=== PATIENT | male | born 1970 | race Caucasian/White ===

== ENCOUNTER 2021-03-21 08:36 | Outpatient (REF) | payer OTHER, SELFPAY ==
[2021-03-21 08:49] LABS: MANUAL DIFF FLAG NO
[2021-03-21 09:11] LABS: Basophils Percent Auto 0.6 % (0-2); Eosinophils Absolute Auto 0.2 X10*3/uL (0.0-0.4); Eosinophils Percent Auto 3.2 % (0-4); Hematocrit 47.7 % (42.0-52.0); Hemoglobin 16.2 g/dl (14.0-18.0); Imm Gran Abs Auto 0.02 X10*3/uL (0.00-0.03); Imm Gran Pct Auto 0.3 % (0.0-0.4); Lymphocytes Absolute Auto 2.6 X10*3/uL (1.2-4.9); Lymphocytes Percent Auto 38.4 % (20-40); Mean Corpuscular Hemoglobin 28.8 pg (27.0-33.0); Mean Corpuscular Volume 84.9 fL (80.0-98.0); Mean Platelet Volume 10.9 fL (9.4-12.4); Monocytes Absolute Auto 0.5 X10*3/uL (0.1-1.2); Monocytes Percent Auto 6.9 % (2-11); Neutrophils Absolute Auto 3.4 x10*3/uL (2.0-8.3); Neutrophils Percent Auto 50.6 % (45-73); Platelet Count 222 X10*3/uL (160-400); Red Blood Count 5.62 X10*6/uL (4.60-5.80); White Blood Count 6.8 X10*3/uL (4.8-10.8)
[2021-03-21 09:35] LABS: Alanine Aminotransferase 30 U/L (0-40); Albumin Level 4.5 g/dL (3.5-5.0); Alkaline Phosphatase 49 U/L (39-117); Anion Gap 12 (12-20); Aspartate Amino Transferase 14 U/L (5-37); Bilirubin Total 0.9 mg/dL (0.0-1.0); Blood Urea Nitrogen 12 mg/dL (9-16); Calcium 9.3 mg/dL (8.4-10.2); Carbon Dioxide 27 mmol/L (22-29); Chloride 105 mmol/L (96-108); Cholesterol 191 mg/dL; Estimated Glomerular Filt Rate > 60; Glucose Fasting 96 mg/dL (60-99); HDL Cholesterol 39 mg/dL; LDL Cholesterol Calculated 121 mg/dl; Potassium 3.9 mmol/L (3.3-5.1); Sodium 140 mmol/L (135-145); Triglycerides 156 mg/dL
[2021-03-21 09:56] LABS: Thyroid Stimulating Hormone 0.86 uIU/mL (0.32-4.0)
== END 2021-03-21 08:37 | disposition home or self-care (01) ==
LOC: HO.LAB 08:36
PROVIDERS: Nurse Practitioner Family; PCP Internal Medicine; Visit Provider Nurse Practitioner Family
DX: R03.0 Elevated blood-pressure reading, without diagnosis of hypertension (principal); I10 Essential (primary) hypertension; Z13.220 Encounter for screening for lipoid disorders; Z13.29 Encounter for screening for other suspected endocrine disorder
CPT/HCPCS: 36415; 80053; 80061; 84443; 85025

== ENCOUNTER 2023-11-04 12:37 | Outpatient (AMB) | payer OTHER, SELFPAY ==
[2023-11-04 12:42] VITALS: BP 160/108; PULSE 64; O2SAT 95; BMI 35.1
--- NOTE | 2023-11-04 12:42 | MHC.PC.OV ---
Vital Signs 11/04/23 12:42 Height 5 ft 7 in Weight 224 lb 0.4 oz BMI 35.1 BP 160/108 H Blood Pressure Location Lt brachial Position Sitting Pulse 64 Pulse Source Pulse Oximeter Pulse Oximetry (%) 95 Oxygen Delivery Method Room Air Intake Visit Reasons: Annual Exam Intake Note: Patient is here today for a physical. 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: No Allergies No Known Allergies Allergy (Verified 11/04/23 13:30) Medication List - Last Reconciled 11/04/23 by Denzel Toth MD amlodipine 5 mg PO DAILY 90 days blood pressure monitor As directed Tobacco use date assessed: 11/04/23 Dental Screening Dental Screen Date: 11/04/23 Did you have a dental visit in the last 12 months?: No Did you have a dental problem in the last 6 months where you did not have access to dental care?: No HPI Annual Exam HPI Details Patient comes in today for his annual physical examination He has been here a couple of times over the past year or two but was last seen by me back in 2020 Patient states that he feels okay States that his blood pressure is high today as he forgot to take his Amlodipine yesterday and this morning so he has not taken his BP med in 2 days States that he usually takes his medicine regularly and really just forgot to take it recently He denies any headaches or dizziness Denies any chest pains, no SOB No nausea/vomiting, no abdominal pain No change in bowel habits noted States that he does get up to go to the bathroom to urinate about 2 to 3 times a night for a while now He also has a large area of rash on his abdomen and lower chest area that he states has been there for at least 2 months now He also has a similar but smaller rash on his right arm recently States that he has only been applying some OTC Benadryl cream on it as needed but it is not helping much other than the itching Recalls seeing Dr. Flores in the past for something similar and he was prescribed an unrecalled medication that he took for a month - states that the rahs then did clear up but it recurred after a while He has not had a colonoscopy done yet in the past Will also need his Amlodipine Rx refilled [facility] Medical History Obesity (BMI 30-39.9) Benign essential hypertension Surgical History No pertinent past surgical history Family History Father Medical history unknown Mother Hypertension Cancer Substance use disorder Social History Housing: House Alcohol intake: current Alcohol intake frequency: holidays/special occasions only Patient Tobacco Use Status: Current someday Tobacco user Tobacco use type: Cigar Cigarettes Per Day: 3 e-Cigarette/Vaping Use: Never Used service: No Current occupational status: employed 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 1. Little interest or pleasure in doing things: not at all 2. Feeling down, depressed, or hopeless: not at all 3. Trouble falling or staying asleep, or sleeping too much: not at all 4. Feeling tired or having little energy: not at all 5. Poor appetite or overeating: not at all 6. Feeling bad about yourself - or that you are a failure or have let yourself or your family down: not at all 7. Trouble concentrating on things, such as reading the newspaper or watching television: not at all 8. Moving or speaking so slowly that other people could have noticed. Or the opposite - being so fidgety or restless that you have been moving around a lot more than usual: not at all 9. Thoughts that you would be better off or of hurting yourself in some way: not at all Total score: 0 Depression Screening Interpretation: Negative Depression Screening Done: Yes 70939 - PHQ-9 Billing: Yes Source: Developed by Drs. Arturo Arriaga, Linh Smith, Nikita Cheek and colleagues, with an educational estee from [employer]. Thrive Questionnaire Date Thrive assessed: 11/04/23 I am a: Patient What is your living situation today?: I have a steady place to live Within the past 12 months, did the food you bought not last and you didn't have the money to get more?: Never true Within the past 12 months, did you worry whether your food would run out before you got money to buy more?: Never true Do you have trouble paying for medicines?: No Do you have trouble getting transportation to medical appointments?: No Do you have trouble paying your heating and electricity bill?: No Do you have trouble taking care of your child, family member or friend?: No Do you have trouble with day-to-day activities such as bathing, preparing meals, shopping, managing finances, etc.?: No Are you currently unemployed and looking for a job?: No Are you interested in more education?: No Please select the resources that you would like help with: None Currently or been in a relationship where the following occur: No concerns reported THRIVE Score: 0 AUDIT C Alcohol Use Questionnaire (AUDIT-C) 1. How often do you have a drink containing alcohol?: Monthly or less 2. How many drinks containing alcohol do you have on a typical day when you are drinking?: 1 or 2 Total Score: 1 Score Reviewed/Action Taken: Yes KARMEN-7 AMB Questionnaire KARMEN-7 Date KARMEN - 7 assessed: 11/04/23 Feeling nervous, anxious, or on edge: 0 = Not at all Not being able to stop or control worryin = Not at all Worrying too much about different things: 0 = Not at all Trouble relaxin = Not at all Being so restless that it is hard to sit still: 0 = Not at all Becoming easily annoyed or irritable: 0 = Not at all Feeling afraid as if something awful might happen: 0 = Not at all Total KARMEN-7 score (0-4 normal; 5-9 mild; 10-14 moderate; 15-21 severe): 0 Source: Developed by Drs. Arturo Arriaga, Linh Smith, Nikita Cheek and colleagues, with an educational estee from [employer]. KARMEN-7 Assessment Billing KARMEN-7 Assessment Tool: KARMEN-7 Assessment 62703 Review of Systems Const Denies chills, Denies fatigue, Denies fever(s), Denies headache(s), Denies malaise and Denies weakness Eyes Denies blurry vision, Denies change in vision, Denies irritation and Denies itchy eyes ENT Denies dysphagia, Denies dizziness, Denies otalgia, Denies headache(s), Denies nasal congestion, Denies neck pain, Denies odynophagia and Denies sore throat Card Denies chest pain, Denies rapid heart rate, Denies irregular heart rhythm, Denies palpitations and Denies dyspnea Resp Denies chest congestion, Denies cough, Denies dyspnea and Denies wheezing GI Denies abdominal pain, Denies bloating, Denies constipation, Denies dysphagia, Denies heartburn, Denies diarrhea, Denies nausea, Denies odynophagia and Denies vomiting Denies hematuria, Denies difficulty urinating, Denies dysuria, Reports nocturia, Denies urinary frequency and Denies urinary urgency Musc Denies back pain, Denies arthralgias, Denies joint swelling, Denies muscle weakness and Denies neck pain Skin/Breast Denies change in pigmentation, Denies lesions, Reports rash (large patch of erythematous rash over the abdomen and on the R arm) and Denies unusual bruising Neuro Denies dizziness, Denies headache(s), Denies paresthesias and Denies weakness Endo Denies fatigue and Denies palpitations Aller/Immun Denies itchy eyes and Denies wheezing Physical exam (Primary Care) Vital Signs: Last Vital Signs Pulse 64 11/04/23 12:42 BP 160/108 H 11/04/23 12:42 Pulse Ox 95 11/04/23 12:42 Oxygen Delivery Method Room Air 11/04/23 12:42 BMI result Body Mass Index 35.1 Tobacco/Smoking Status: Tobacco use Status Tobacco use date assessed 11/04/23 11/04/23 12:43 Patient Tobacco Use Status Current someday Tobacco 11/04/23 12:49 Tobacco use type Cigar 11/04/23 12:43 e-Cigarette/Vaping Use Never Used 11/04/23 12:43 PHQ-9: PHQ-9 Score PHQ-9: Total score 0 11/04/23 12:44 Depression Screening Interpretation: Negative Thrive Assessment: Date of Thrive Assessment Date Thrive assessed 11/04/23 11/04/23 12:44 Currently or been in a relationship where the following occur: No concerns reported Const General: no acute distress, alert and awake Orientation/consciousness: patient oriented x3 HENMT Head: Yes normocephalic and Yes atraumatic Ears: external ears normal, TM's normal bilaterally and EAC's normal General nose exam: No nasal discharge present Face and sinus: Yes normal facial exam and Yes sinuses nontender Teeth and gingiva: dentition normal Throat: Yes posterior oropharynx normal and Yes tonsils normal (no TP congestion) Eyes Eyelids: Yes eyelids normal Conjunctivae: conjunctivae normal Pupils: Equal, round and reactive pupils present EOM: EOMs intact bilaterally Neck Neck: Yes no lymphadenopathy and Yes supple Thyroid: Thyroid normal Resp Auscultation: clear to auscultation bilaterally, no rales and no wheezes Cardio Rate: regular rate Rhythm: regular rhythm Heart sounds: no murmurs GI Palpation (GI): Soft to palpation, nontender and No hepatosplenomegaly present Auscultation: normal bowel sounds General: Yes no CVA tenderness Back/Spine/Pelvis Back: no CVA tenderness Thoracic/Lumbar Spine: thoracic and lumbar spine normal to inspection Skin Other: (+) large patch of erythematous rash over the lower chest / anterior abdominal wall area that has a well-delineated border with some central clearing; (+) similar but smaller rash over the right arm Neuro General: patient oriented x3, moves all extremities, no focal motor deficits and CN's II-XI intact bilaterally Cranial nerves: Yes Equal, round and reactive pupils present Cognition (Neuro): normal cognition Gait exam (Neuro): Normal gait present Extrem General: Yes no clubbing, cyanosis or edema Assessment and Plan Assessment & Plan (1) Annual physical exam: Code(s): Z00.00 - Encounter for general adult medical examination without abnormal findings Plan: Check labs (2) Benign essential hypertension: Code(s): I10 - Essential (primary) hypertension Plan: Reinforced low sodium diet - goal is systolic BP of 120 mm or less Continue Amlodipine 5 mg QD for now - Rx refilled Patient is advised that as he has not been taking his BP med consistently lately, we cannot determine if his current dose is adequate or not If his BP is still elevated at his next follow up visit if he is taking his med regularly, then we will need to make some adjustments or changes to his med regimen (3) Tinea corporis: Code(s): B35.4 - Tinea corporis Plan: Will start him on Griseofulvin 500 mg QD x 30 days and Lotrisone cream BID to rash x 4 weeks If rash does not improve with Tx, will need to consider referring back to dermatology (4) Frequent noctunal urination: Code(s): R35.1 - Nocturia Plan: Will check his serum PSA level for further evaluation Discussed that it is likely that he is starting to experience symptoms of BPH (5) Obesity (BMI 30-39.9): Code(s): E66.9 - Obesity, unspecified Plan: Reinforced diet/exercise as tolerated/lose weight (6) Colon cancer screening: Code(s): Z12.11 - Encounter for screening for malignant neoplasm of colon Plan: Will refer him to GI for screening colonoscopy Plan Follow up in 3 months Orders: Orders Prostate Specific Antigen Today N40.0 - Benign prostatic hyperplasia without lower urinary tract symptoms, Z00.00 - Encounter for general adult medical examination without abnormal findings Vitamin D 25-OH Total Today E55.9 - Vitamin D deficiency, unspecified, Z00.00 - Encounter for general adult medical examination without abnormal findings TSH reflex Free T4 Today E78.00 - Pure hypercholesterolemia, unspecified, Z00.00 - Encounter for general adult medical examination without abnormal findings Complete Blood Count Auto Diff Today D64.9 - Anemia, unspecified, Z00.00 - Encounter for general adult medical examination without abnormal findings Comprehensive [place]. Panel Fast Today E78.00 - Pure hypercholesterolemia, unspecified, Z00.00 - Encounter for general adult medical examination without abnormal findings UA CC w/rflx Micro + Cult Today R30.0 - Dysuria, Z00.00 - Encounter for general adult medical examination without abnormal findings Lipid Panel Today E78.00 - Pure hypercholesterolemia, unspecified, Z00.00 - Encounter for general adult medical examination without abnormal findings Referrals Gastroenterology Referral Z12.11 - Encounter for screening for malignant neoplasm of colon Medications: New griseofulvin microsize must administer with high-fat meal or food 500 mg PO DAILY 30 days 30 tabs 0RF clotrimazole-betamethasone 1-0.05 % 1 appl topical BID 4 weeks 45 grams 0RF Refilled amlodipine 5 mg PO DAILY 90 days 90 tabs 1RF I10 - Essential (primary) hypertension Coding Level of Care Code Est Pt Prev Care 40-64y(12822) Diagnoses Annual physical exam Z00.00 Benign essential hypertension I10 Tinea corporis B35.4 Frequent noctunal urination R35.1 Obesity (BMI 30-39.9) E66.9 Colon cancer screening Z12.11 Additional Codes KARMEN-7 Assessment Billing - KARMEN-7 Assessment Tool: KARMEN-7 Assessment 95267 ([id number])
== END 2023-11-04 13:43 | disposition home or self-care (01) ==
PROVIDERS: PCP Internal Medicine; Visit Provider Internal Medicine
DX: Z00.00 Encounter for general adult medical examination without abnormal findings (principal); I10 Essential (primary) hypertension; B35.4 Tinea corporis; R35.1 Nocturia; E66.9 Obesity, unspecified; Z12.11 Encounter for screening for malignant neoplasm of colon
CPT/HCPCS: 99396

== ENCOUNTER 2024-07-05 12:54 | Outpatient (AMB) | payer OTHER, SELFPAY ==
[2024-07-05 13:12] VITALS: BP 146/100; PULSE 95; O2SAT 93; BMI 36.6
--- NOTE | 2024-07-05 13:12 | A.OFFPC_ITS ---
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 Accompanied by: Self / Same As Patient Allergies No Known Allergies Allergy (Verified 07/05/24 13:37) Medication List - Last Reconciled 07/05/24 by Denzel Toth MD amlodipine 5 mg PO DAILY 90 days blood pressure monitor As directed clotrimazole-betamethasone 1-0.05 % 1 appl topical BID 4 weeks griseofulvin microsize 500 mg PO DAILY 30 days Tobacco use date assessed: 07/05/24 Dental Screening Dental Screen Date: 07/05/24 Did you have a dental visit in the last 12 months?: No Did you have a dental problem in the last 6 months where you did not have access to dental care?: No Was dental information given to patient?: No HPI Left eye mole HPI Details Patient comes in today for his follow up visit States that he has a persistent lesion/cyst on his right upper eyelid that has been present for the past 2 to 3 months now States that the lesion does not hurt or itch but it sometimes get bigger than it is right now His states that they would like to see someone about having the cyst removed Patient also needs his Amlodipine Rx refilled States that he has been taking his BP med daily as prescribed although his blood pressure still runs high every now and then His states that patient would complain of some headaches when his BP is up He denies any dizziness Denies any chest pains, no increased SOB No nausea/vomiting, no abdominal pain No change in bowel habits noted He states that he was never contacted for an appointment regarding his colonoscopy after he was referred when he was last here in November 2023 His now states that she just found out that patient has a strong family Hx of colon cancer and wants him to get himself checked out LAUREL Patient also was not yet able to get his previously ordered labs done [facility] Medical History (Updated 07/05/24 @ 13:57 by Denzel Toth MD) Essential hypertension Obesity (BMI 30-39.9) Benign essential hypertension Surgical History No pertinent past surgical history Family History Father Medical history unknown Mother Hypertension Cancer Substance use disorder Social History Housing: House Alcohol intake: current Alcohol intake frequency: holidays/special occasions only Patient Tobacco Use Status: Current someday Tobacco user Tobacco use type: Cigar Cigarettes Per Day: 3 e-Cigarette/Vaping Use: Never Used service: No Current occupational status: employed 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 1. Little interest or pleasure in doing things: not at all 2. Feeling down, depressed, or hopeless: not at all 3. Trouble falling or staying asleep, or sleeping too much: not at all 4. Feeling tired or having little energy: not at all 5. Poor appetite or overeating: not at all 6. Feeling bad about yourself - or that you are a failure or have let yourself or your family down: not at all 7. Trouble concentrating on things, such as reading the newspaper or watching television: not at all 8. Moving or speaking so slowly that other people could have noticed. Or the opposite - being so fidgety or restless that you have been moving around a lot more than usual: not at all 9. Thoughts that you would be better off or of hurting yourself in some way: not at all Total score: 0 Depression Screening Interpretation: Negative Depression Screening Done: Yes 19668 - PHQ-9 Billing: Yes Source: Developed by Drs. Arturo Arriaga, Linh Smith, Nikita Cheek and colleagues, with an educational estee from [employer]. Thrive Questionnaire Date Thrive assessed: 07/05/24 I am a: Patient What is your living situation today?: I have a steady place to live Within the past 12 months, did the food you bought not last and you didn't have the money to get more?: Never true Within the past 12 months, did you worry whether your food would run out before you got money to buy more?: Never true Do you have trouble paying for medicines?: No Do you have trouble getting transportation to medical appointments?: No Do you have trouble paying your heating and electricity bill?: No Do you have trouble taking care of your child, family member or friend?: No Do you have trouble with day-to-day activities such as bathing, preparing meals, shopping, managing finances, etc.?: No Are you currently unemployed and looking for a job?: No Are you interested in more education?: No Please select the resources that you would like help with: None Currently or been in a relationship where the following occur: No concerns reported THRIVE Score: 0 AUDIT C Alcohol Use Questionnaire (AUDIT-C) 1. How often do you have a drink containing alcohol?: Monthly or less 2. How many drinks containing alcohol do you have on a typical day when you are drinking?: 1 or 2 Total Score: 1 Score Reviewed/Action Taken: Yes KARMEN-7 AMB Questionnaire KARMEN-7 Date KARMEN - 7 assessed: 07/05/24 Feeling nervous, anxious, or on edge: 0 = Not at all Not being able to stop or control worryin = Not at all Worrying too much about different things: 0 = Not at all Trouble relaxin = Not at all Being so restless that it is hard to sit still: 0 = Not at all Becoming easily annoyed or irritable: 0 = Not at all Feeling afraid as if something awful might happen: 0 = Not at all Total KARMEN-7 score (0-4 normal; 5-9 mild; 10-14 moderate; 15-21 severe): 0 Source: Developed by Drs. Arturo Arriaga, Linh Smith, Nikita Cheek and colleagues, with an educational estee from [employer]. KARMEN-7 Assessment Billing KARMEN-7 Assessment Tool: KARMEN-7 Assessment 36682 Review of Systems Const Denies chills, Denies fatigue, Denies fever(s) and Reports headache(s) (at times, when blood pressure goes high) Eyes Details: (+) persistent lesion/cyst on the right upper eyelid Denies blurry vision and Denies irritation ENT Denies dysphagia, Denies dizziness, Denies otalgia, Reports headache(s) (at times, when blood pressure goes high), Denies neck pain, Denies odynophagia and Denies sore throat Card Denies chest pain, Denies irregular heart rhythm, Denies palpitations and Denies dyspnea Resp Denies chest congestion, Denies cough and Denies dyspnea GI Denies abdominal pain, Denies constipation, Denies dysphagia, Denies heartburn, Denies diarrhea, Denies nausea, Denies odynophagia and Denies vomiting Denies difficulty urinating, Denies dysuria, Reports nocturia and Denies urinary frequency Musc Denies back pain, Denies arthralgias and Denies neck pain Skin/Breast Denies rash Neuro Denies dizziness, Reports headache(s) (at times, when blood pressure goes high) and Denies paresthesias Endo Denies fatigue and Denies palpitations Physical exam (Primary Care) Vital Signs: Last Vital Signs Pulse 95 07/05/24 13:12 BP 146/100 H 07/05/24 13:12 Pulse Ox 93 07/05/24 13:12 Oxygen Delivery Method Room Air 07/05/24 13:12 BMI result Body Mass Index 36.6 Tobacco/Smoking Status: Tobacco use Status Tobacco use date assessed 07/05/24 07/05/24 13:25 Patient Tobacco Use Status Current someday Tobacco 07/05/24 13:25 Tobacco use type Cigar 07/05/24 13:25 e-Cigarette/Vaping Use Never Used 07/05/24 13:25 PHQ-9: PHQ-9 Score PHQ-9: Total score 0 07/05/24 13:25 Depression Screening Interpretation: Negative Thrive Assessment: Date of Thrive Assessment Date Thrive assessed 07/05/24 07/05/24 13:25 Currently or been in a relationship where the following occur: No concerns reported Const General: no acute distress and alert HENMT Throat: Yes posterior oropharynx normal and Yes tonsils normal (no TP congestion) Eyes Other: (+) non-tender cyst over the lateral side of the right upper eyelid Neck Neck: Yes supple and No lymphadenopathy Thyroid: Thyroid normal Resp Auscultation: clear to auscultation bilaterally, no rales and no wheezes Cardio Rate: regular rate Rhythm: regular rhythm Heart sounds: no murmurs GI Palpation (GI): Soft to palpation and nontender Auscultation: normal bowel sounds General: Yes no CVA tenderness Back/Spine/Pelvis Back: no CVA tenderness Thoracic/Lumbar Spine: No lumbar spinal tenderness Skin Rashes: no rashes Extrem General: Yes no clubbing, cyanosis or edema Coding Level of Care Code Est Pt Level 4 (54761) Diagnoses Essential hypertension I10 Lesion of right upper eyelid H02.9 Colon cancer screening Z12.11 Additional Codes KARMEN-7 Assessment Billing - KARMEN-7 Assessment Tool: KARMEN-7 Assessment 53017 ([id number]) PHQ-9 - 40543 - PHQ-9 Billing: Yes ([id number]) Assessment & Plan Assessment & Plan (1) Essential hypertension: Code(s): I10 - Essential (primary) hypertension Category: Medical Plan: Reinforced low sodium diet - goal is systolic BP of at least 120 to 130 mm or less Continue Amlodipine 5 mg QD - Rx refilled Will start him additionally on Losartan 50 mg QD He is instructed to get his previously ordered labs (updated) done LAUREL (2) Lesion of right upper eyelid: Code(s): H02.9 - Unspecified disorder of eyelid Category: Medical Plan: Will refer him to ophthalmology for further evaluation and consideration for excision of the right upper eyelid lesion, if appropriate (3) Colon cancer screening: Code(s): Z12.11 - Encounter for screening for malignant neoplasm of colon Category: Medical Plan: Patient is advised that he appears to have had an appointment with GI scheduled back on 01/29/2024 but he reportedly was never aware of this appt. They have been instructed to contact GI to schedule a new appointment with them as his previous referral is still active and open in his chart Plan Follow up in 3 months Orders: Referrals Ophthalmology Referral H02.9 - Unspecified disorder of eyelid Medications: New losartan 50 mg PO DAILY 90 days 90 tabs 1RF Refilled amlodipine 5 mg PO DAILY 90 days 90 tabs 1RF I10 - Essential (primary) hypertension
[2024-07-05 13:35] VITALS: BP 140/100
--- OUTSIDE RECORDS SUMMARY | 2024-07-05 15:55 | XMS_ITS | Clinical Summary ---
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 Role Phone Unavailable Primary Care Provider Unavailabl e Social History Tobacco Use Types Packs/Day Years Used Date Smoking Tobacco: Never Assessed Sex and Gender Information Value Date Recorded Sex Assigned at Not on file Legal Sex Male 1:51 PM EST Gender Identity Not on file Sexual Orientation Not on file Plan of Treatment Health Maintenance Due Date Last Done Comments DTaP,Tdap,and Td Vaccines (1 - Tdap) 1988 Hepatitis B Vaccines (1 of 3 - 19+ 3-dose series) 1988 Pneumococcal Vaccine: 50+ Ye ars (1 of 1 - PCV) 10/16/2019 Zoster Vaccines (1 of 2) 10/16/2019 COVID-19 Vaccine ( - 2023-2 5 season) 2024 Influenza Vaccine (#1) 2024 HIB Vaccines Aged Out No longer eligi ble based on patient's age to complete this topic HPV Vaccines Aged Out No longer eligi ble based on patient's age to complete this topic Hepatitis A Vaccines Aged Out No long er eligible based on patient's age to complete this topic IPV Vaccines Aged Out No longer eligi ble based on patient's age to complete this topic MMR Vaccines Aged Out No longer eligi ble based on patient's age to complete this topic Meningococcal ACWY Vaccine Aged Out N o longer eligible based on patient's age to complete this topic Meningococcal B Vacine Aged Out No lo nger eligible based on patient's age to complete this topic Pneumococcal Vaccine: Pediat rics (0 to 5 Years) and At-Risk Patients (6 to 64 Years) Aged Out No longer eligible b ased on patient's age to complete this topic RSV Immunization Patients Un rufino 20 months Aged Out No longer eligible b ased on patient's age to complete this topic Varicella Vaccines Aged Out No longer eligible based on patient's age to complete this topic
== END 2024-07-05 14:02 | disposition home or self-care (01) ==
PROVIDERS: PCP Internal Medicine; Visit Provider Internal Medicine
DX: I10 Essential (primary) hypertension (principal); H02.9 Unspecified disorder of eyelid; Z12.11 Encounter for screening for malignant neoplasm of colon

== ENCOUNTER → 2024-07-05 12:54 | Outpatient (BNVA) | payer OTHER, SELFPAY | PROVIDERS: PCP Internal Medicine; Visit Provider Internal Medicine | DX: I10 Essential (primary) hypertension (principal); H02.9 Unspecified disorder of eyelid; Z79.899 Other long term (current) drug therapy | CPT/HCPCS: 96127 ==

== ENCOUNTER 2024-07-06 06:10 | Outpatient (REF) | payer OTHER, SELFPAY ==
--- OUTSIDE RECORDS SUMMARY | 2024-07-06 06:13 | XMS_ITS | Data Portability ---
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 Plan of Treatment Reminders Order Date Submit Date Provider Last Modified By Organization Details Last Modified Time Details Appointments None recorded. Lab None recorded. Referral None recorded. Procedures None recorded. Surgeries None recorded. Imaging None recorded. Medication Orders albuterol sulfate HFA 90 mcg/actuati on aerosol inhaler 2022 023 [facility]/Pharmacy #[id number], [address] [place], [address], 3 09:12:03 prednisone 20 mg tablet 2022 023 [facility]/Pharmacy #[id number], [address] [place], [address], 3 09:12:04 Allergy Relief (fluticason e) 50 mcg/actuati on nasal spray,suspe nsion 2022 023 [facility]/Pharmacy #[id number], [address] [place], [address], 3 09:12:04 benzonatate 200 mg capsule 2022 023 [facility]/Pharmacy #[id number], [address] [place], [address], 3 09:12:03 Patient TargetsNo targets recorded. Patient Instructions Encounter Date Encounter Id Patient Instructions Last Modified By Organization Details Last Modified Time 05/04/2022 [id number] cough: care instructions Not available 05/04/2022 09:12:00 Acute bronchitis is a condition of the lower airway with self-limited inflammation that will eventually resolve on it's own. It is usually caused by a viral infection in 95% of cases, therefore an antibiotic is not needed. Unfortunately, these symptoms can persist for approximately 3 weeks, with occasional persistence for 4-6 weeks. Treatment for bronchitis is aimed at focusing on helping to relieve your symptoms and you can implement the following remedies below, as long as they do not interfere with your current medications, past medical history, or go against advice you have received from your primary care provider and/or a specialist. If you are concerned you can always ask a pharmacist your primary care provider prior to their use. Not available 05/04/2022 09:11:57 Patient instruct ed on worsening signs and symptoms that would require further evaluation by ED or PCP such as fever of 101.0 or greater, congestion accompanied with coughing, vomiting, diarrhea, abdominal pain, decreased oral intake, lethargy, or other new symptom(s) experienced not discussed during this visit. Use humidifier and ensure good hydration. If you experience new concerning symptoms, shortness of breath, respiratory distress, or chest pain go to the ER. Use the medications prescribed. May use Decongestants if tolerated and no history of elevated blood pressure or Diabetes. Use saline nasal saline and Flonase daily for1 week. You may use tylenol for pain/fever. Do not take prednisone with Ibuprofen. Get some extra rest. When should you call for help? Call anytime you think you may need emergency care. For example, call if: You have severe trouble breathing. Call your doctor now or seek immediate medical care if: You have new or worse trouble breathing. You cough up dark brown or bloody mucus (sputum). You have a new or higher fever. You have a new rash. Watch closely for changes in your health, and be sure to contact your doctor if: You cough more deeply or more often, especially if you notice more mucus or a change in the color of your mucus. You are not getting better as expected. Not available 05/04/2022 09:11:41 Reason for Referral None Reported. Problems Name Problem SNOMED Code Status Onset Date Resolution Date Notes Provider Name and Address Organization Details Recorded Time Hypertensive disorder [id number] Active FLAQUITA García [facility] 3 08:44:09 Problem Notes None recorded. Medical Equipment None Reported. Allergies No known drug allergies Medications Name Sig Start Date Stop Date Status Note LastModified by Organization Details LastModified Time benzonatate 200 mg capsule Take 1 capsule 3 times a day by oral route for 7 days. 2022 active Not Available Not Available Not Avai lable prednisone 20 mg tablet Take 2 tablets every day by oral route in the morning for 5 days. 2022 active Not Available Not Available Not Avai lable amlodipine 5 mg tablet TAKE 1 TABLET BY MOUTH EVERY DAY 2022 active Not Available Not Available Not Avai lable albuterol sulfate HFA 90 mcg/actuatio n aerosol inhaler INHALE 2 PUFFS EVERY 4 HOURS FOR 7 DAYS active Not Available Not Available No t Available fluticasone propionate 50 mcg/actuatio n nasal spray,suspen kash SPRAY 1 SPRAY BY INTRANASAL ROUTE TWICE A DAY FOR 30 DAYS active Not Available Not Available No t Available Vitals Date Recorded Body height Body mass index (BMI) Body weight Pain severity - 0-10 verbal numeric rating [Score] - Reported Oxygen saturation Oxygen saturation in Arterial blood by Pulse oximetry Heart rate Respiratory rate Body temperature Systolic blood pressure Diastolic blood pressure Provider Name and Address Organization Details Last Updated DateTime 3 170.18 cm 35.2 kg/m2 250954. 28 g 0 95 % 95 % 95 /min 19 /min 97.3 [degF] 144 mm[Hg] 99 mm[Hg] KYLE Garcia Seeorandy [facility] 3 08:48:56 Social History Question Answer Notes LastModified by Organizat ion Details LastModified Time Tobacco Smoking Status Current Some Day Smoker [facility] Schaeffer [facility] 05/04/2022 08:46:47 What Is Your Level Of Alcohol Consumption? Occasional Information not available 05/04/2022 Have You Had Direct Contact, Or Contact During Intimacy, With Monkeypox Rash, Scabs, Or Body Fluids From A Person With Monkeypox? No Information not available 05/04/2022 Do You Use Any Illicit Or Recreational Drugs? No Information not available 05/04/2022 Have You Recently Traveled Abroad? No Information not available 05/04/2022 Do You Or Have You Ever Used Any Other Forms Of Tobacco Or Nicotine? No Information not available 05/04/2022 Sex: Unknown Functional Status None recorded. Mental Status None recorded. Family History Relationship Description Onset Age of this Age Resolved Age Notes LastModified by Organization Details LastModified Time Mother Hypertensive disorder Not available 05/2022 08:45:58 Medical History No medical history recorded. Past Encounters Encounter ID Performer Location Encounter Start Date Encounter Closed Date Diagnosis/Indication Diagnosis SNOMED-CT Code Diagnosis ICD10 Code Diagnosis Note [id number] [address] [place] [address] 03/20/2021 08:56:39 03/20/2021 09:56:57 [id number] [address] [place] [address] 06/01/2017 13:57:39 06/01/2017 15:37:23 [id number] [address] [place] [address] 09/17/2016 12:06:46 09/17/2016 12:36:54 [id number] Perfecto Motta, SEPTIC TECHNICIAN [address] [place] [address] 05/04/2022 08:15:58 05/04/2022 09:16:59 Acute bronchitis 46433626 J20.9 Health Concerns Section Related Observation LastModified by Organization Detai ls LastModified Time None Recorded Concern Status LastModified by Organization Details LastModified Time None Recorded Advance Directives Directive None Recorded Payers Encounter Date Sequence Insurance Name Policy Number Policy Arora Covered Member ID Arora Member ID Guarantor Name 03/20/2021 1 [facility] [id number] 1 Kirit C Perez [id number] Kirit C Perez-Lauren era 05/04/[address] [place] [address] [id number] 1 Kirit C Perez [id number] Kirit Martinez Perez-Lauren era Notes Date Note Type Note Provider Name and Address Organization Details Recorded Time 05/04/2022 text/html CoughReported bypatient.Notes:con gested cough and wheezing in the night x 30 days. denies any fever or chills. denies any SOB or respiratory distress. Perfecto Motta NP [address] [place], [address], [place] - [facility] 05/04/2022 09:13:11
[2024-07-06 06:23] LABS: MANUAL DIFF FLAG NO
[2024-07-06 07:04] LABS: Basophils Percent Auto 0.4 % (0-2); Eosinophils Absolute Auto 0.2 X10*3/uL (0.0-0.4); Eosinophils Percent Auto 3.5 % (0-4); Hematocrit 48.3 % (42.0-52.0); Hemoglobin 16.6 g/dl (14.0-18.0); Imm Gran Abs Auto 0.02 X10*3/uL (0.00-0.03); Imm Gran Pct Auto 0.3 % (0.0-0.4); Lymphocytes Absolute Auto 2.6 X10*3/uL (1.2-4.9); Lymphocytes Percent Auto 37.9 % (20-40); Mean Corpuscular HGB Conc 34.4 g/dl (31.0-36.0); Mean Corpuscular Hemoglobin 28.6 pg (27.0-33.0); Mean Corpuscular Volume 83.3 fL (80.0-98.0); Mean Platelet Volume 11.5 fL (9.4-12.4); Monocytes Absolute Auto 0.6 X10*3/uL (0.1-1.2); Monocytes Percent Auto 8.8 % (2-11); Neutrophils Absolute Auto 3.4 x10*3/uL (2.0-8.3); Neutrophils Percent Auto 49.1 % (45-73); Platelet Count 203 X10*3/uL (160-400); White Blood Count 6.9 X10*3/uL (4.8-10.8)
[2024-07-06 07:42] LABS: Alanine Aminotransferase 31 U/L (0-40); Albumin Level 4.4 g/dL (3.5-5.0); Alkaline Phosphatase 58 U/L (39-117); Anion Gap 13 (12-20); Aspartate Amino Transferase 21 U/L (5-37); Bilirubin Total 0.5 mg/dL (0.0-1.0); Blood Urea Nitrogen 17 mg/dL (9-16); Calcium 9.3 mg/dL (8.4-10.2); Carbon Dioxide 26 mmol/L (22-29); Chloride 107 mmol/L (96-108); Cholesterol 192 mg/dL (<200); Estimated Glomerular Filt Rate > 60; Glucose Fasting 96 mg/dL (60-99); HDL Cholesterol 43 mg/dL (>40); LDL Cholesterol Calculated 129 mg/dL (<100); Potassium 3.9 mmol/L (3.3-5.1); Sodium 142 mmol/L (135-145); Total Protein 7.9 g/dL (6.5-8.0); Triglycerides 102 mg/dL (<150)
[2024-07-06 07:50] LABS: TSH reflex Free T4 1.33 uIU/mL (0.32-4.0); Vitamin D 25-OH Total 17.1 ng/mL (>30)
[2024-07-06 07:51] LABS: Prostate Specific Antigen 0.67 ng/mL (<0.05-4.0)
[2024-07-06 08:00] LABS: Appearance Urine Clear; Color Urine Yellow; Glucose Urine UA Negative (Negative); Leukocyte Esterase Urine Negative (Negative); Nitrite Urine Negative (Negative); PH 5.5 (5.0-9.0); UMIC TRIGGER UACC YES; Urine Blood Negative (Negative); Urine Ketones Negative (Negative); Urine Protein 30 (1+) mg/dL (Neg-Trace)
[2024-07-06 08:05] LABS: Bacteria Urine None Seen (None Seen); Hyaline Casts Urine 0-2 /LPF (0-2); RBC Urine 0-2 /HPF (0-2); Squamous Epithelial Cell Urine 0-2 /HPF (0-2); WBC Urine 0-5 /HPF (0-5)
== END 2024-07-06 06:11 | disposition home or self-care (01) ==
LOC: HO.LAB 06:10
PROVIDERS: PCP Internal Medicine; Visit Provider Internal Medicine
DX: Z00.00 Encounter for general adult medical examination without abnormal findings (principal); E55.9 Vitamin D deficiency, unspecified; E78.00 Pure hypercholesterolemia, unspecified; D64.9 Anemia, unspecified; N40.0 Benign prostatic hyperplasia without lower urinary tract symptoms; Z12.5 Encounter for screening for malignant neoplasm of prostate
CPT/HCPCS: 36415; 80053; 80061; 81001; 81003; 82306; 84153; 84443; 85025

== ENCOUNTER → 2024-07-28 13:45 | Outpatient (BNVA) | payer OTHER, SELFPAY | PROVIDERS: PCP Internal Medicine ==

== ENCOUNTER 2024-09-30 12:46 | Outpatient (AMB) | payer OTHER, SELFPAY ==
[2024-09-30 13:02] VITALS: BP 160/100; PULSE 84; O2SAT 95; BMI 36.5
--- NOTE | 2024-09-30 13:02 | MHC.OFFVIS ---
Vital Signs 09/30/24 13:02 Height 5 ft 7 in Weight 233 lb BMI 36.5 BP 160/100 H Blood Pressure Location Lt brachial Position Sitting Pulse 84 Pulse Source Pulse Oximeter Pulse Oximetry (%) 95 Oxygen Delivery Method Room Air Intake Visit Reasons: INP-R/O ESTHER Customer Operations Specialist Required: No Accompanied by: Self / Same As Patient Allergies No Known Allergies Allergy (Verified 09/30/24 13:06) HPI Comments Details: 53 year old male referred to us for evaluation of ESTHER. He has difficulty falling asleep and his c/o loud snoring. He goes to bed at 9pm and wakes up at 5am. 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 He gets up 2-3 times a night for the bathroom. History of hypertension bp is elevated today to 160/100, he is on amlodipine 5mg and losartan 50mg, he forgot to take his meds last night. Denies RLS Denies morning headaches daily, when he manages his blood pressure he does not have headaches any more. Denies grinding his teeth. Denies parasomnias. He smokes 3 cigars per week and drinks one beer at night daily. 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 Cognitive needs: No Hearing needs: No Vision needs: Yes (Reading glasses) Review of Systems Const All systems reviewed & are unremarkable except as noted in HPI and below Physical Exam Vital Signs: Last Vital Signs Pulse 84 09/30/24 13:02 BP 160/100 H 09/30/24 13:02 Pulse Ox 95 09/30/24 13:02 Oxygen Delivery Method Room Air 09/30/24 13:02 BMI result Body Mass Index 36.5 Const General: cooperative, comfortable and no acute distress Nutritional Appearance: average body habitus Orientation/consciousness: patient oriented x3 HEENT Face and sinus: Yes face symmetric Throat: Yes other ([place] score 3) Eyes Pupils: Equal, round and reactive pupils present Neck Neck: Yes full ROM Resp Effort & Inspection: normal respiratory effort and able to speak in complete sentences Neuro General: patient oriented x3 and moves all extremities Cranial nerves: Yes Facial sensation intact/muscles of mastication intact, Yes Equal, round and reactive pupils present, Yes Normal accommodation reflex present, Yes Bilaterally intact EOM present, Yes Normal facial strength present, Yes Midline tongue present, Yes Ability to bilaterally rotate head present and Yes Ability to bilaterally elevate shoulders present Cognition (Neuro): normal cognition Gait exam (Neuro): Normal gait present Motor exam (neuro): 5/5 motor strength present throughout and Normal motor muscle tone present throughout Psych Appearance: grossly normal Thought process: Normal thought process present Thought content: Normal thought content present Results Reviewed Results Reviewed: Reviewed Labs with patient he has low vit d. levels. Assessment & Plan Assessment & Plan (1) ESTHER (obstructive sleep apnea): Code(s): G47.33 - Obstructive sleep apnea (adult) (pediatric) Category: Medical (2) Excessive daytime sleepiness: Code(s): G47.19 - Other hypersomnia Category: Medical (3) Low vitamin D level: Code(s): R79.89 - Other specified abnormal findings of blood chemistry Category: Medical (4) Pinguecula, left eye: Code(s): H11.152 - Pinguecula, left eye Category: Medical Plan ESTHER will evaluate with HST Labs to r/o excessive daytime sleepiness and fatigue Vit D is low start vit d daily. f/u in 3 months Patient Education : Sleep Hygiene and HTN BP management is reviewed, HTN is the number one modifiable risk factor for all cardiovascular co-morbidities. Orders: Orders RT home sleep study Today G47.19 - Other hypersomnia Medications: New cholecalciferol (vitamin D3) 62.5 mcg orally; 3 months 90 caps 0RF low vitamin d MDD 62.5mcg R79.89 - Other specified abnormal findings of blood chemistry Patient Instructions: Sleep Hygiene provided: set a scheduled bedtime and wake time to help regulate the circadian rhythm and balance the release of pituitary hormones. Sleep in a dark room, temperatures below 68 degrees, and no devices n bed. Limit caffeinated products 6 hours prior to bed, and limit fluids 2-4 hours prior to bed. Gentle night yoga, diffusing essential oils, and playing soft music can be relaxing. Coding Level of Care Code New Pt Level 4 (68002) Diagnoses ESTHER (obstructive sleep apnea) G47.33 Excessive daytime sleepiness G47.19 Low vitamin D level R79.89 Pinguecula, left eye H11.152 Time Spent (min) 30 Comment evaluation of sleep apnea Sleep Questionnaire Difficulty falling asleep: Yes Difficulty staying asleep?: No Number of arousals: 3 Snoring: Yes Witnessed apneas: Yes Gasping arousals: Yes Nocturia: Yes GERD: No Vivid dreams: Yes Acting out dreams: Yes Abnormal behavior in sleep: No Abnormal movements in sleep: No Morning headaches: Yes Excessive daytime sleepiness: Yes Daytime naps: Yes Restless legs: No Hallucinations: No Sleep paralysis: No Drop attacks: No Sleep Study: No CPAP: No
--- OUTSIDE RECORDS SUMMARY | 2024-09-30 13:03 | XMS_ITS | Clinical Summary ---
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
== END 2024-09-30 13:38 | disposition home or self-care (01) ==
LOC: HO.HSMS 12:47
PROVIDERS: PCP Internal Medicine; Visit Provider Physician Assistant Medical
DX: G47.33 Obstructive sleep apnea (adult) (pediatric) (principal); G47.19 Other hypersomnia; R79.89 Other specified abnormal findings of blood chemistry; H11.152 Pinguecula, left eye
CPT/HCPCS: 99204

== ENCOUNTER → 2024-09-30 12:46 | Outpatient (BNVA) | payer OTHER, SELFPAY | PROVIDERS: PCP Internal Medicine; Visit Provider Physician Assistant Medical ==

== ENCOUNTER 2024-11-08 14:23 | Outpatient (AMB) | payer OTHER, SELFPAY ==
[2024-11-08 14:31] VITALS: BP 144/92; PULSE 84; O2SAT 91; BMI 36.3
--- NOTE | 2024-11-08 14:32 | A.OFFPC_ITS ---
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 Required: No Accompanied by: Self / Same As Patient Allergies No Known Allergies Allergy (Verified 11/08/24 15:08) Medication List - Last Reconciled 11/08/24 by Denzel Toth MD amlodipine 5 mg PO DAILY 90 days blood pressure monitor As directed cholecalciferol (vitamin D3) 62.5 mcg orally; 3 months MDD 62.5mcg clotrimazole-betamethasone 1-0.05 % 1 appl topical BID 4 weeks griseofulvin microsize 500 mg PO DAILY 30 days losartan 50 mg PO DAILY 90 days Tobacco use date assessed: 11/08/24 Dental Screening Dental Screen Date: 11/08/24 Did you have a dental visit in the last 12 months?: No Did you have a dental problem in the last 6 months where you did not have access to dental care?: No Was dental information given to patient?: No HPI Hypertension HPI Details Patient comes in today for his follow-up visit States that he feels okay He denies any headaches or dizziness Denies any chest pains, no shortness of breath No nausea/vomiting, no abdominal pain No change in bowel habits noted Needs his Amlodipine Rx refilled He has no follow-up labs done recently although he did get his labs done back in July 2024 Adds that he has had some recurrent itchy skin lesions for the past couple of weeks and would like to get a prescription for something to help clear these up [facility] Medical History (Updated 11/14/24 @ 05:35 by Denzel Toth MD) Vitamin D deficiency Essential hypertension Obesity (BMI 30-39.9) Benign essential hypertension Surgical History No pertinent past surgical history Family History Father Medical history unknown Mother Hypertension Cancer Substance use disorder Social History Housing: House Alcohol intake: current Alcohol intake frequency: holidays/special occasions only Patient Tobacco Use Status: Current someday Tobacco user Tobacco use type: Cigar Cigarettes Per Day: 3 e-Cigarette/Vaping Use: Never Used service: No Current occupational status: employed 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 1. Little interest or pleasure in doing things: not at all 2. Feeling down, depressed, or hopeless: not at all 3. Trouble falling or staying asleep, or sleeping too much: not at all 4. Feeling tired or having little energy: not at all 5. Poor appetite or overeating: not at all 6. Feeling bad about yourself - or that you are a failure or have let yourself or your family down: not at all 7. Trouble concentrating on things, such as reading the newspaper or watching television: not at all 8. Moving or speaking so slowly that other people could have noticed. Or the opposite - being so fidgety or restless that you have been moving around a lot more than usual: not at all 9. Thoughts that you would be better off or of hurting yourself in some way: not at all Total score: 0 Depression Screening Interpretation: Negative Depression Screening Done: Yes 28293 - PHQ-9 Billing: Yes Source: Developed by Drs. Arturo Arriaga, Linh Smith, Nikita Cheek and colleagues, with an educational estee from [employer]. Thrive Questionnaire Date Thrive assessed: 11/08/24 I am a: Patient What is your living situation today?: I have a steady place to live Within the past 12 months, did the food you bought not last and you didn't have the money to get more?: Never true Within the past 12 months, did you worry whether your food would run out before you got money to buy more?: Never true Do you have trouble paying for medicines?: No Do you have trouble getting transportation to medical appointments?: No Do you have trouble paying your heating and electricity bill?: No Do you have trouble taking care of your child, family member or friend?: No Do you have trouble with day-to-day activities such as bathing, preparing meals, shopping, managing finances, etc.?: No Are you currently unemployed and looking for a job?: No Are you interested in more education?: No Please select the resources that you would like help with: None Currently or been in a relationship where the following occur: No concerns reported THRIVE Score: 0 AUDIT C Alcohol Use Questionnaire (AUDIT-C) 1. How often do you have a drink containing alcohol?: Monthly or less 2. How many drinks containing alcohol do you have on a typical day when you are drinking?: 1 or 2 3. How often do you have six or more drinks on one occasion?: Never Total Score: 1 Score Reviewed/Action Taken: Yes KARMEN-7 AMB Questionnaire KARMEN-7 Date KARMEN - 7 assessed: 11/08/24 Feeling nervous, anxious, or on edge: 0 = Not at all Not being able to stop or control worryin = Not at all Worrying too much about different things: 0 = Not at all Trouble relaxin = Not at all Being so restless that it is hard to sit still: 0 = Not at all Becoming easily annoyed or irritable: 0 = Not at all Feeling afraid as if something awful might happen: 0 = Not at all Total KARMEN-7 score (0-4 normal; 5-9 mild; 10-14 moderate; 15-21 severe): 0 Source: Developed by Drs. Arturo Arriaga, Linh Smith, Nikita Cheek and colleagues, with an educational estee from [employer]. KARMEN-7 Assessment Billing KARMEN-7 Assessment Tool: KARMEN-7 Assessment 77027 Review of Systems Const Denies chills, Denies fatigue, Denies fever(s) and Reports headache(s) (at times, when blood pressure goes high) ENT Denies dysphagia, Denies dizziness, Denies otalgia, Reports headache(s) (at times, when blood pressure goes high), Denies neck pain, Denies odynophagia and Denies sore throat Card Denies chest pain, Denies irregular heart rhythm, Denies palpitations and Denies dyspnea Resp Denies chest congestion, Denies cough and Denies dyspnea GI Denies abdominal pain, Denies constipation, Denies dysphagia, Denies heartburn, Denies diarrhea, Denies nausea, Denies odynophagia and Denies vomiting Denies difficulty urinating, Denies dysuria, Reports nocturia and Denies urinary frequency Musc Denies back pain, Denies arthralgias and Denies neck pain Skin/Breast Details: (+) few recurrent itchy rash/lesions Neuro Denies dizziness, Reports headache(s) (at times, when blood pressure goes high) and Denies paresthesias Endo Denies fatigue and Denies palpitations Physical exam (Primary Care) Vital Signs: Last Vital Signs Pulse 84 11/08/24 14:31 BP 144/92 H 11/08/24 14:31 Pulse Ox 91 L 11/08/24 14:31 Oxygen Delivery Method Room Air 11/08/24 14:31 BMI result Body Mass Index 36.3 Tobacco/Smoking Status: Tobacco use Status Tobacco use date assessed 11/08/24 11/08/24 14:34 Patient Tobacco Use Status Current someday Tobacco 11/08/24 14:34 Tobacco use type Cigar 11/08/24 14:34 e-Cigarette/Vaping Use Never Used 11/08/24 14:34 PHQ-9: PHQ-9 Score PHQ-9: Total score 0 11/08/24 15:12 Depression Screening Interpretation: Negative Thrive Assessment: Date of Thrive Assessment Date Thrive assessed 11/08/24 11/08/24 14:34 Currently or been in a relationship where the following occur: No concerns reported Const General: no acute distress and alert HENMT Throat: Yes posterior oropharynx normal and Yes tonsils normal (no TP congestion) Neck Neck: Yes supple and No lymphadenopathy Thyroid: Thyroid normal Resp Auscultation: clear to auscultation bilaterally, no rales and no wheezes Cardio Rate: regular rate Rhythm: regular rhythm Heart sounds: no murmurs GI Palpation (GI): Soft to palpation and nontender Auscultation: normal bowel sounds General: Yes no CVA tenderness Back/Spine/Pelvis Back: no CVA tenderness Thoracic/Lumbar Spine: No lumbar spinal tenderness Skin Other: (+) few scattered pruritic papular rash/lesions Extrem General: Yes no clubbing, cyanosis or edema Results Reviewed Results Reviewed: Laboratory Tests 07/06/24 07/06/24 06:19 06:21 WBC 6.9 Hgb 16.6 Hct 48.3 Plt Count 203 Sodium 142 Potassium 3.9 Creatinine 0.82 Estimated GFR > 60 Fasting Glucose 96 Calcium 9.3 AST 21 ALT 31 Triglycerides 102 Cholesterol 192 LDL Cholesterol, Calc 129 H HDL Cholesterol 43 Prostate Specific Ag 0.67 25-OH Vitamin D Total 17.1 L TSH 1.33 Ur Specific [place] 1.020 Urine Protein 30 (1+) H Urine Glucose (UA) Negative Urine Blood Negative Urine Nitrite Negative Ur Leukocyte Esterase Negative Coding Level of Care Code Est Pt Level 4 (10206) Diagnoses Essential hypertension I10 Vitamin D deficiency E55.9 Dermatitis L30.9 Obesity (BMI 30-39.9) E66.9 Additional Codes KARMEN-7 Assessment Billing - KARMEN-7 Assessment Tool: KARMEN-7 Assessment 34967 ([id number]) PHQ-9 - 67460 - PHQ-9 Billing: Yes ([id number]) Assessment & Plan Assessment & Plan (1) Essential hypertension: Code(s): I10 - Essential (primary) hypertension Category: Medical Plan: Reinforced low sodium diet - goal is systolic BP of at least 120 to 130 mm or less Continue Amlodipine 5 mg QD; will increase his Losartan from 50 mg to 100 mg QD He is advised to continue monitoring his blood pressure regularly (2) Vitamin D deficiency: Code(s): E55.9 - Vitamin D deficiency, unspecified Category: Medical Plan: Results of his labs done back in July 2024 reviewed and discussed with patient - she is advised that his vitamin-D level is low Will start him on vitamin D3 2000 units QD (3) Dermatitis: Code(s): L30.9 - Dermatitis, unspecified Category: Medical Plan: Will start him on topical Mometasone 0.1% QD PRN (4) Obesity (BMI 30-39.9): Code(s): E66.9 - Obesity, unspecified Category: Medical Plan: Reinforced diet/exercise as tolerated/lose weight Plan Follow up in 4 months Medications: New mometasone 0.1% 1 appl topical DAILY PRN 45 grams 1RF rash/itching Changed From cholecalciferol (vitamin D3) 62.5 mcg orally; 3 months 90 caps 0RF low vitamin d MDD 62.5mcg R79.89 - Other specified abnormal findings of blood chemistry To cholecalciferol (vitamin D3) 2,000 units orally ; 90 caps 3RF 90 days R79.89 - Other specified abnormal findings of blood chemistry From losartan 50 mg PO DAILY 90 days 90 tabs 1RF To losartan 100 mg PO DAILY 90 tabs 1RF 90 days Refilled amlodipine 5 mg PO DAILY 90 tabs 1RF 90 days I10 - Essential (primary) hypertension
--- OUTSIDE RECORDS SUMMARY | 2024-11-08 15:16 | XMS_ITS | Clinical Summary ---
Author Organization [facility] ity Address [address] [place] [address] Care Team Providers Care Radiology Rn Name Role Phone Unavailable Primary Care Provider [...] Vaccines (1 of 2) 10/16/2019 COVID-19 Vaccine (1 - 2023-2 5 season) 2024 Influenza Vaccine (#1) 2025 HIB Vaccines Aged Out No longer [...] 5 Years) and At-Risk Patients (6 to 49 Years) Aged Out No longer eligible b ased on patient's age to complete this topic RSV Immunization Patients Un rufino 20 months Aged Out No longer eligible b ased on patient's age to complete this topic Varicella Vaccines Aged Out No longer eligible based on patient's age to complete this topic
--- OUTSIDE RECORDS SUMMARY | 2024-11-08 15:16 | XMS_ITS | Data Portability ---
Author Organization [facility]LAQUITA [facility] [employer], [address] Address [address] [place] [address] Care Team Providers Care Supervisor Film Processing Name Role Phone MACY FUCHS Primary Care Provider [phone] Assessment No assessment recorded. Plan of Treatment Reminders Order Date Submit Date Provider Last Modified By Organization Details Last Modified Time Details Appointments None recorded. Lab None recorded. Referral None recorded. Procedures None recorded. Surgeries None recorded. Imaging None recorded. Medication Orders albuterol sulfate HFA 90 mcg/actuati on aerosol inhaler 2022 023 [facility] #[id number], [address] [place], [address], 3 09:12:03 prednisone 20 mg tablet 2022 023 [id number], [address] [place], [address], 3 09:12:04 Allergy Relief (fluticason e) 50 mcg/actuati on nasal spray,suspe nsion 2022 023 [id number], [address] [place], [address], 3 09:12:04 benzonatate 200 mg capsule 2022 023 [id number], [address] [place], [address], 3 09:12:03 Patient TargetsNo targets recorded. Patient Instructions Encounter Date Encounter Id Patient Instructions Last Modified By Organization Details Last Modified Time 05/04/2022 [id number] cough: care instructions Not available 05/04/2022 09:12:00 [...] Address Organization Details Recorded Time Hypertensive disorder [id number] Active FLAQUITA García [facility] 3 08:44:09 [...] height Body mass index (BMI) Body weight Oxygen saturation Oxygen saturation in Arterial blood by Pulse oximetry Heart rate Respiratory rate Body temperature Systolic And Diastolic Provider Name and Address Organization Details Last Updated DateTime 3 170.18 cm 35.2 kg/m2 477551. 28 g 95 % 95 % 95 /min 19 /min 97.3 [degF] 144/99 mm[Hg] KYLE Santiago [facility] 3 08:48:56 Social History Question Answer Notes LastModified by Organizat ion Details LastModified Time Tobacco Smoking Status Current Some Day Smoker [facility]LAQUITA Schaeffer [facility] 05/04/2022 08:46:47 Have You Had Direct Contact, Or Contact During Intimacy, With Monkeypox Rash, Scabs, Or Body Fluids From A Person With Monkeypox? No Information not available 05/04/2022 Have You Recently Traveled Abroad? No Information not available 05/04/2022 Sex: Unknown Functional Status Question Answer Note LastModified by Organizat ion Details LastModified Time Do you use any illicit or recreational drugs? No Information not available 05/04/2022 Do you or have you ever used any other forms of tobacco or nicotine? No Information not available 05/04/2022 What is your level of alcohol consumption? Occasional Information not available 05/04/2022 Mental Status None recorded. Family History Relationship Description Onset Age of this Age Resolved Age Notes LastModified by Organization Details LastModified Time Mother Hypertensive disorder Not available 05/2022 08:45:58 Medical History No medical history recorded. Past Encounters Encounter ID Performer Location Encounter Start Date Encounter Closed Date Diagnosis/Indication Diagnosis SNOMED-CT Code Diagnosis ICD10 Code Diagnosis Note [id number] [address] [facility] [place] [address] 03/20/2021 08:56:39 03/20/2021 09:56:57 [id number] [address] [place] [address] 06/01/2017 13:57:39 06/01/2017 15:37:23 [id number] [address] [place] [address] 09/17/2016 12:06:46 09/17/2016 12:36:54 [id number] Perfecto Motta, [facility] [address] [place] [address] 05/04/2022 08:15:58 05/04/2022 09:16:59 Acute bronchitis 51256609 J20.9 Health Concerns Section Related Observation LastModified by Organization Detai ls LastModified Time None Recorded Concern Status LastModified by Organization Details LastModified Time None Recorded Advance Directives Directive None Recorded Payers Insurance Date Sequence Insurance Name Policy Number Policy Arora Covered Member ID Arora Member ID Guarantor Name 06/18/[address] [place] [address] [id number] Kirit C Perez [id number] Kirit C Perez-Lauren era Notes Date Note Type Note Provider Name and Address Organization Details Recorded Time 05/04/2022 text/html CoughReported bypatient.Notes:con gested cough and wheezing in the night x 30 days. denies any fever or chills. denies any SOB or respiratory distress. Perfecto Motta NP [address] [place], [address], [place] - [facility] 05/04/2022 09:13:11
== END 2024-11-08 15:18 | disposition home or self-care (01) ==
LOC: HO.HMCH 14:23
PROVIDERS: PCP Internal Medicine; Visit Provider Internal Medicine
DX: I10 Essential (primary) hypertension (principal); E55.9 Vitamin D deficiency, unspecified; E66.9 Obesity, unspecified; Z68.36 Body mass index [BMI] 36.0-36.9, adult; L30.9 Dermatitis, unspecified

== ENCOUNTER → 2024-11-08 14:23 | Outpatient (BNVA) | payer OTHER, SELFPAY | PROVIDERS: PCP Internal Medicine; Visit Provider Internal Medicine | DX: I10 Essential (primary) hypertension (principal); E55.9 Vitamin D deficiency, unspecified; L30.9 Dermatitis, unspecified; E66.9 Obesity, unspecified; Z68.36 Body mass index [BMI] 36.0-36.9, adult | CPT/HCPCS: 96127 ==

== ENCOUNTER 2024-11-16 10:04 | Outpatient (AMB) | payer OTHER, SELFPAY ==
--- NOTE | 2024-11-16 10:05 | A.OFFVIS_ITS ---
Vital Signs 11/16/24 10:08 Height 5 ft 7 in Weight 229 lb 4.492 oz BMI 35.9 BP 157/97 H Blood Pressure Location Lt brachial Position Sitting Pulse 75 Intake Visit Reasons: [place] screening Intake Note: Kirit presents in the office as a colonoscopy screening. CC: Just due for a colonoscopy - no GI concerns. Family Hx of colon cancer. 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 He is referred by Denzel Toth Obesity Hypertension High cholesterol Headache syndrome * SURGICAL HISTORY None * ALLERGIES: NKDA * [facility] LABS: Laboratory Tests 07/06/24 06:21 WBC 6.9 Hgb 16.6 Hct 48.3 Plt Count 203 Estimated GFR > 60 Total Bilirubin 0.5 AST 21 ALT 31 Alkaline Phosphatase 58 TSH 1.33 TODAY'S VISIT This is his first colonoscopy. No bowel or upper GI problems. He denies any cardiac or respiratory problems. He is naive to anesthesia and sedation. No ID problems. His father of CRC age 75. [facility] Medical History (Updated 11/16/24 @ 10:35 by VIDA Carty) Blood pressure elevated without history of HTN Excessive daytime sleepiness Annual physical exam Colon cancer screening Lesion of right upper eyelid Low vitamin D level Screening for hypothyroidism Benign essential hypertension Screening for hyperlipidemia Vitamin D deficiency Essential hypertension Obesity (BMI 30-39.9) Surgical History No pertinent past surgical history Family History (Updated 11/16/24 @ 10:09 by LOLY Garcia) Father Medical history unknown Colon cancer Mother Hypertension Cancer Substance use disorder Colon cancer Social History Housing: House Alcohol intake: current Alcohol intake frequency: holidays/special occasions only Patient Tobacco Use Status: Current someday Tobacco user Tobacco use type: Cigar Cigarettes Per Day: 3 e-Cigarette/Vaping Use: Never Used service: No Current occupational status: employed 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 Cognitive needs: No Hearing needs: No Vision needs: Yes (Reading glasses) Review of Systems Const Denies fatigue, Denies fever(s), Denies night sweats, Denies poor appetite and Denies weight loss ENT Reports Normal hearing present, Denies dental pain, Denies dysphagia, Denies hearing loss, Denies mouth pain, Denies odynophagia, Denies throat swelling, Denies tongue swelling and Reports other (Dentition adequate) Card Reports no additional complaints Resp Reports no additional complaints GI Details: Denies abdominal pain, Denies melena, Denies bloating, Denies hematochezia, Denies constipation, Denies GI cramping, Denies dysphagia, Denies excessive flatus, Denies early satiety, Denies heartburn, Denies diarrhea, Denies nausea, Denies odynophagia, Denies vomiting and Denies hematemesis Skin/Breast Denies pruritus, Denies lesions, Denies rash and Denies jaundice Neuro Reports Normal hearing present and Denies Abnormal speech present Endo Denies fatigue Aller/Immun Denies throat swelling and Denies tongue swelling Physical Exam Vital Signs: BMI result Body Mass Index 35.9 Const General: cooperative, no acute distress, well developed and well groomed Nutritional Appearance: well nourished and obese Orientation/consciousness: oriented to person, oriented to place and oriented to time Limitations: No language barrier HEENT Head: Yes normocephalic and Yes atraumatic Eyes General: appearance normal, both eyes and all related structures Pupils: Equal, round and reactive pupils present Neck Neck: Yes normal visual inspection and Yes no lymphadenopathy Thyroid: Thyroid normal Resp Effort & Inspection: normal respiratory effort and able to speak in complete sentences Auscultation: clear to auscultation bilaterally Cardio Rate: regular rate Rhythm: regular rhythm Heart sounds: Normal, physiologic split S2 sound present Peripheral pulses: radial pulses present and posterior tibial pulses present GI Inspection: No distended, No Abdominal panniculus present, Yes obesity and Yes visible pulsation (mild umbilical hernia) Palpation (GI): Soft to palpation, nontender, no guarding, not rigid and No hepatosplenomegaly present Percussion: Yes normal to percussion Auscultation: normal bowel sounds Rectal Exam - Male: Yes deferred Skin General skin exam: no rashes or lesions noted, turgor normal, skin not dry, no jaundice, No spider nevi and no striae Rashes: no rashes Nails: normal Neuro General: oriented to person, oriented to place and oriented to time Cranial nerves: Yes Equal, round and reactive pupils present and Yes Normal hearing present Speech: No Abnormal speech present Extrem General: Yes normal to inspection, No clubbing, No cyanosis and No edema Psych Appearance: grossly normal and well kempt Mental Status: mental status grossly normal Speech and movement: Normal speech and movement present Affect: normal affect Attitude: cooperative Thought process: Normal thought process present and not confabulating Thought content: Normal thought content present Insight: Good insight present (Psych) Judgement: Good judgement present (Psych) Assessment & Plan Assessment & Plan (1) Pre-op examination: Code(s): Z01.818 - Encounter for other preprocedural examination Category: Medical (2) ESTHER (obstructive sleep apnea): Code(s): G47.33 - Obstructive sleep apnea (adult) (pediatric) Category: Medical (3) Obesity (BMI 30-39.9): Code(s): E66.9 - Obesity, unspecified Category: Medical (4) Family history of colon cancer in father: Comment: CRC age 75 Code(s): Z80.0 - Family history of malignant neoplasm of digestive organs Category: Medical Plan This is his first colonoscopy. No bowel or upper GI problems. He denies any cardiac or respiratory problems. He is naive to anesthesia and sedation. No ID problems. His father of CRC age 75. Orders: Orders Colonoscopy - GI Use Only Today Z01.818 - Encounter for other preprocedural examination Medications: New sodium,potassium,mag sulfates 17.5-3.13-1.6 gram (Suprep Bowel Prep Kit) 480 mL orally; FOR COLONOSCOPY PREP 354 mL 0RF Coding Level of Care Code New Pt Level 3 (98453) Diagnoses Pre-op examination Z01.818 ESTHER (obstructive sleep apnea) G47.33 Obesity (BMI 30-39.9) E66.9 Family history of colon cancer in father Z80.0
[2024-11-16 10:08] VITALS: BP 157/97; PULSE 75; BMI 35.9
--- OUTSIDE RECORDS SUMMARY | 2024-11-16 10:37 | XMS_ITS | Clinical Summary ---
Author Organization [facility] ity Address [address] [place] [address] Care Team Providers Care Silver Holloware Assembler Name Role Phone Unavailable Primary Care Provider [...]
--- OUTSIDE RECORDS SUMMARY | 2024-11-16 10:38 | XMS_ITS | Data Portability ---
Author Organization FLAQUITA Santiago [facility], [address] Address [address] [place] [address] Care Team Providers Care Manufacturing Plant Controller Name Role Phone MACY FUCHS Primary Care Provider Assessment No assessment recorded. Plan of Treatment Reminders Order Date Submit Date Provider Last Modified By Organization Details Last Modified Time Details Appointments None recorded. Lab None recorded. Referral None recorded. Procedures None recorded. Surgeries None recorded. Imaging None recorded. Medication Orders albuterol sulfate HFA 90 mcg/actuati on aerosol inhaler 2022 023 [facility] #[id number], [address] [place], [address], 3 09:12:03 prednisone 20 mg tablet 2022 023 [facility], [address] [place], [address], 3 09:12:04 Allergy Relief (fluticason e) 50 mcg/actuati on nasal spray,suspe nsion 2022 023 [facility]12[facility], [address] [place], [address], 3 09:12:04 benzonatate 200 mg capsule 2022 023 [facility] #12[facility], [address] [place], [address], 3 09:12:03 Patient TargetsNo targets recorded. Patient Instructions Encounter Date Encounter Id Patient Instructions Last Modified By Organization Details Last Modified Time 05/04/2022 [id number] cough: care instructions Not available 05/04/2022 09:12:00 [...] Address Organization Details Recorded Time Hypertensive disorder [id number] Active FLAQUITA García RA [facility] 3 08:44:09 [...] Updated DateTime 3 170.18 cm 35.2 kg/m2 105457. 28 g 95 % 95 % 95 [...] SNOMED-CT Code Diagnosis ICD10 Code Diagnosis Note [id number] [address] [place] [address] 03/20/2021 08:56:39 03/20/2021 09:56:57 [id number] [address] [place] [address] 06/01/2017 13:57:39 06/01/2017 15:37:23 [id number] [address] [place] [address] 09/17/2016 12:06:46 09/17/2016 12:36:54 [id number] Perfecto Motta, TRANSLATOR INTERPRETER [address] [place] [address] 05/04/2022 08:15:58 05/04/2022 09:16:59 Acute bronchitis 22385221 J20.9 Health Concerns Section Related Observation LastModified by Organization Detai ls LastModified Time None Recorded Concern Status LastModified by Organization Details LastModified Time None Recorded Advance Directives Directive None Recorded Payers Insurance Date Sequence Insurance Name Policy Number Policy Arora Covered Member ID Arora Member ID Guarantor Name 06/18/[address] [place] [address] [id number] 1 Kirit C Perez [id number] Kirit C Perez-Lauren era Notes Date Note Type Note Provider Name and Address Organization Details Recorded Time 05/04/2022 text/html CoughReported bypatient.Notes:con gested cough and wheezing in the night x 30 days. denies any fever or chills. denies any SOB or respiratory distress. Perfecto Motta NP [address] [place], [address], [place] - [facility] 05/04/2022 09:13:11
== END 2024-11-16 10:33 | disposition home or self-care (01) ==
LOC: HO.HGI 10:04
PROVIDERS: PCP Internal Medicine; Visit Provider Nurse Practitioner
DX: Z01.818 Encounter for other preprocedural examination (principal); Z12.11 Encounter for screening for malignant neoplasm of colon; Z80.0 Family history of malignant neoplasm of digestive organs; G47.33 Obstructive sleep apnea (adult) (pediatric); E66.9 Obesity, unspecified
CPT/HCPCS: 99203

== ENCOUNTER 2024-12-26 13:54 | Outpatient (AMB) | payer OTHER, SELFPAY ==
[2024-12-26 14:12] VITALS: BP 140/90; PULSE 94; O2SAT 94; BMI 37.4
--- NOTE | 2024-12-26 14:12 | A.OFFVIS_ITS ---
Vital Signs 12/26/24 14:12 Height 5 ft 7 in Weight 239 lb BMI 37.4 BP 140/90 H Blood Pressure Location Rt brachial Position Sitting Pulse 94 Pulse Source Pulse Oximeter Pulse Oximetry (%) 94 Oxygen Delivery Method Room Air Intake Visit Reasons: 3 mo followo up Intake Note: Patient presents follow up ESTHER. No-showed HST 12/14. Looking to r/s test Allergies No Known Allergies Allergy (Verified 12/26/24 14:17) HPI Comments Details: 54 year old male referred to us for an evaluation of sleep apnea. Pending HST to determine ESTHER- We discussed labs today. He has difficulty falling asleep and his c/o loud snoring. He goes to bed at 9pm and wakes up at 5am. 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 He gets up 2-3 times a night for the bathroom. History of hypertension bp is elevated today his bp is 140/90, he forgot to take his meds last night. Denies RLS. Denies morning headaches daily, when he manages his blood pressure he does not have headaches any more. Denies grinding his teeth. Denies parasomnias, denies hallucination. He smokes 2-3 cigars per month, drinks socially. 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 [facility] Medical History Blood pressure elevated without history of HTN Excessive daytime sleepiness Annual physical exam Colon cancer screening Lesion of right upper eyelid Low vitamin D level Screening for hypothyroidism Benign essential hypertension Screening for hyperlipidemia Vitamin D deficiency Essential hypertension Obesity (BMI 30-39.9) Surgical History No pertinent past surgical history Family History Father Medical history unknown Colon cancer Mother Hypertension Cancer Substance use disorder Colon cancer Social History Housing: House Alcohol intake: current Alcohol intake frequency: holidays/special occasions only Patient Tobacco Use Status: Current someday Tobacco user Tobacco use type: Cigar Cigarettes Per Day: 3 e-Cigarette/Vaping Use: Never Used service: No Current occupational status: employed 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 Cognitive needs: No Hearing needs: No Vision needs: Yes (Reading glasses) Physical Exam Vital Signs: Last Vital Signs Pulse 94 12/26/24 14:12 BP 140/90 H 12/26/24 14:12 Pulse Ox 94 12/26/24 14:12 Oxygen Delivery Method Room Air 12/26/24 14:12 BMI result Body Mass Index 37.4 Const General: cooperative, comfortable and no acute distress Nutritional Appearance: average body habitus Orientation/consciousness: patient oriented x3 HEENT Face and sinus: Yes face symmetric Throat: Yes other ([place] score 3) Eyes Pupils: Equal, round and reactive pupils present Neck Neck: Yes full ROM Resp Effort & Inspection: normal respiratory effort and able to speak in complete sentences Neuro General: patient oriented x3 and moves all extremities Cranial nerves: Yes Facial sensation intact/muscles of mastication intact, Yes Equal, round and reactive pupils present, Yes Normal accommodation reflex present, Yes Bilaterally intact EOM present, Yes Normal facial strength present, Yes Midline tongue present, Yes Ability to bilaterally rotate head present and Yes Ability to bilaterally elevate shoulders present Cognition (Neuro): normal cognition Gait exam (Neuro): Normal gait present Motor exam (neuro): 5/5 motor strength present throughout and Normal motor muscle tone present throughout Psych Appearance: grossly normal Thought process: Normal thought process present Thought content: Normal thought content present Assessment & Plan Assessment & Plan (1) Excessive daytime sleepiness: Code(s): G47.19 - Other hypersomnia Category: Medical (2) Vitamin D deficiency: Code(s): E55.9 - Vitamin D deficiency, unspecified Category: Medical (3) Obesity (BMI 30-39.9): Code(s): E66.9 - Obesity, unspecified Category: Medical Plan HST r/o esther labs reveiwed with patient today. Weight management referral if amenable in the future. f/u in 3 months Orders: Orders RT home sleep study 12/26/24 G47.19 - Other hypersomnia Patient Instructions: Sleep Hygiene provided: set a scheduled bedtime and wake time to help regulate the circadian rhythm and balance the release of pituitary hormones. Sleep in a dark room, temperatures below 68 degrees, and no devices n bed. Limit caffeinated products 6 hours prior to bed, and limit fluids 2-4 hours prior to bed. Gentle night yoga, diffusing essential oils, and playing soft music can be relaxing. Coding Level of Care Code Est Pt Level 4 (71108) Diagnoses Excessive daytime sleepiness G47.19 Vitamin D deficiency E55.9 Obesity (BMI 30-39.9) E66.9
--- OUTSIDE RECORDS SUMMARY | 2024-12-26 15:15 | XMS_ITS | Clinical Summary ---
Author Organization [facility] ity Address [address] [place] [address] Care Team Providers Care Short Filler Bunch Machine Operator Name Role Phone Unavailable Primary [...] Vaccine (1 - 2023-2 5 season) 2024 Depression Screening 05/04/2024 Influenza Vaccine (#1) 2025 HIB Vaccines Aged [...]
== END 2024-12-26 14:54 | disposition home or self-care (01) ==
LOC: HO.HSMS 13:54
PROVIDERS: PCP Internal Medicine; Visit Provider Physician Assistant Medical
DX: G47.19 Other hypersomnia (principal); E55.9 Vitamin D deficiency, unspecified; E66.9 Obesity, unspecified
CPT/HCPCS: 99214

== ENCOUNTER → 2025-03-06 09:48 | Outpatient (REF) | payer OTHER, SELFPAY ==
--- OUTSIDE RECORDS SUMMARY | 2025-03-06 11:22 | XMS_ITS | Clinical Summary ---
Author Organization [facility] ity Address [address] [place] [address] Care Team Providers Care Towel Hemmer Name Role Phone Unavailable Primary Care Provider [...] 10/16/2019 Zoster Vaccines (1 of 2) 10/16/2019 Depression Screening 05/04/2024 COVID-19 Vaccine (1 - 2023-2 5 season) 2025 Influenza Vaccine (#1) 2025 RSV Immunization Adult Patie nts (1 - 1-dose 75+ series) 2044 HIB Vaccines Aged Out No longer eligi [...]
--- OUTSIDE RECORDS SUMMARY | 2025-03-06 11:22 | XMS_ITS | Data Portability ---
Author Organization FLAQUITA Santiago [employer], [address] Address [address] [place] [address] Care Team Providers Care Student Finance Advisor Name Role Phone MACY FUCHS Primary Care Provider [phone] Assessment No assessment recorded. Plan of Treatment Reminders Order Date Submit Date Provider Last Modified By Organization Details Last Modified Time Details Appointments None recorded. Lab None recorded. Referral None recorded. Procedures None recorded. Surgeries None recorded. Imaging None recorded. Medication Orders albuterol sulfate HFA 90 mcg/actuati on aerosol inhaler [address] [facility] #1291, [address] [place], [address], 3 09:12:03 prednisone [address] tablet [address] [facility]1291, [address] [place], [address], 3 09:12:04 Allergy Relief (fluticason e) 50 mcg/actuati on nasal spray,suspe nsion [address] [facility] #1291, [address] [place], [address], 3 09:12:04 benzonatate 200 mg capsule [address] [facility]1291, [address] [place], [address], 3 09:12:03 Patient TargetsNo targets recorded. Patient Instructions Encounter Date Encounter Id Patient Instructions Last Modified By Organization Details Last Modified Time 05/04/2022 [id number] cough: care instructions Not available 05/04/2022 09:12:00 [...] Address Organization Details Recorded Time Hypertensive disorder [id number] Active FLAQUITA García RA [facility] 3 08:44:09 [...] Updated DateTime 3 170.18 cm 35.2 kg/m2 274648. 28 g 0 95 % 95 % [...] Diagnosis SNOMED-CT Code Diagnosis ICD10 Code Diagnosis IMO Codes Diagnosis Note [id number] [address] [place] [address] 03/20/2021 08:56:39 03/20/2021 09:56:57 [id number] [address] [place] [address] 06/01/2017 13:57:39 06/01/2017 15:37:23 [id number] [address] [place] [address] 09/17/2016 12:06:46 09/17/2016 12:36:54 [id number] Perfecto Motta, ANALOG CIRCUIT DESIGNER [address] [place] [address] 05/04/2022 08:15:58 05/04/2022 09:16:59 Acute bronchitis 61217821 J20.9 Health Concerns Section Related Observation LastModified by Organization Detai ls LastModified Time None Recorded Concern Status LastModified by Organization Details LastModified Time None Recorded Advance Directives Directive None Recorded Payers Insurance Date Sequence Insurance Name Policy Number Policy Arora Covered Member ID Arora Member ID Guarantor Name 06/18/2022 1 [facility] [id number] 1 Kirit C Perez [id number] Kirit C Perez-Lauren era Notes Date Note Type Note Provider Name and Address Organization Details Recorded Time 05/04/2022 text/html CoughReported by Patientcongested cough and wheezing in the night x 30 days. denies any fever or chills. denies any SOB or respiratory distress. Perfecto Motta NP [address] [place], [address], [place] - [facility] 05/04/2022 09:13:11
== END ==
LOC: HO.SL 09:48
PROVIDERS: PCP Internal Medicine; Visit Provider Physician Assistant Medical
DX: G47.19 Other hypersomnia (principal); G47.33 Obstructive sleep apnea (adult) (pediatric)
CPT/HCPCS: 95806

== ENCOUNTER → 2025-03-06 09:58 | Outpatient (BNV) | payer OTHER, SELFPAY | PROVIDERS: PCP Internal Medicine; Visit Provider Internal Medicine | DX: G47.33 Obstructive sleep apnea (adult) (pediatric) (principal) | CPT/HCPCS: 95806 ==